=== PATIENT | male | born 1980 ===

== ENCOUNTER 2016-11-18 20:13 | Inpatient (IN) | payer BC, OTHER ==
[~2016-11-18] VITALS: Ht 167.6 cm; Wt 68.0 kg
--- NOTE | 2016-11-18 21:00 | NUR ---
PRE-ADMISSION Pt's pre-admission assessment performed in the intake office of [facility]. Pt is A&O x4 and ambulatory with a steady gait. Pt does not appear intoxicated and answers all questions appropriately. He verbalizes that he has been drinking ETOH (Vodka). Pt denies food or drug allergies. Denies seizure history. Vital signs are B/P 123/90, HR 96, RR 16, O2 sat 97%, T 98, pain 0/10. Pt is able to provide urine drug screen during the intake process. Admission to be continued on the [facility].
[2016-11-18 21:08] LABS: *AMPHETAMINE, URINE NEGATIVE (NEGATIVE); *BARBITURATE, URINE NEGATIVE (NEGATIVE); *CANNABINOID, URINE NEGATIVE (NEGATIVE); *COCCAINE, URINE NEGATIVE (NEGATIVE); *OPIATE, URINE NEGATIVE (NEGATIVE); *PHENCYCLIDINE SCREEN,URINE NEGATIVE (NEGATIVE)
[2016-11-18 21:15] VITALS: BP 123/90
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
[2016-11-18] MEDS ORDERED: CLONIDINE HCL 0.1 MG TABLET PO PRN (22:30)
[2016-11-18] MEDS ORDERED: LORAZEPAM 1 MG TABLET PO PRN ×2 (22:30)
[2016-11-18] MEDS ORDERED: LOPERAMIDE HCL 2 MG CAPSULE PO PRN ×2 (22:30)
[2016-11-18] MEDS ORDERED: diphenhydrAMINE 50 MG CAPSULE PO PRN (22:30)
[2016-11-18] MEDS ORDERED: ONDANSETRON ODT 4 MG TAB.RAPDIS SL PRN (22:30)
[2016-11-18] MEDS ORDERED: THIAMINE HCL 200 MG/2 ML VIAL IM ONE (22:30)
[2016-11-18] MEDS ORDERED: LORAZEPAM 2 MG/1 ML VIAL IM PRN (22:30)
[2016-11-18] MEDS ORDERED: MIRALAX 17 GM POWD.PACK PO PRN (22:30)
[2016-11-18] MEDS ORDERED: ACETAMINOPHEN 325 MG TABLET PO PRN (22:30)
[2016-11-18] MEDS ORDERED: MAG HYDROX/AL HYDROX/SIMETH 30 ML LIQUID UDC PO PRN (22:30)
[2016-11-18] MEDS ORDERED: DICYCLOMINE HCL 20 MG TABLET PO PRN (22:30)
[2016-11-18] MEDS ORDERED: IBUPROFEN 400 MG TABLET PO PRN (22:30)
[2016-11-18] MEDS ORDERED: MAGNESIUM HYDROXIDE 30 ML LIQUID UDC PO PRN (22:30)
[2016-11-18] MEDS ORDERED: ONDANSETRON 4 MG/2 ML VIAL IM PRN (22:30)
[2016-11-18] MEDS: HYDROXYZINE PAMOATE 25 MG CAPSULE PO PRN (22:53)
--- NOTE | 2016-11-18 22:53 | NUR ---
PRN Administration Pt reported feeling anxious - non-pharmacological methods ineffective. Vistaril 25mg PRN administered. Vitamin B1 injection also administered as ordered. Safety measures in place, Will continue to monitor.
[2016-11-18] MEDS ORDERED: HYDROXYZINE PAMOATE 25 MG CAPSULE ONE (23:00)
[2016-11-18 23:17] LABS: BASOPHILS # (AUTO) 0.1 K/uL (0.0-8.0); BASOPHILS % (AUTO) 1.2 % (0.0-2.0); EOSINOPHILS # (AUTO) 0.4 K/uL (0.0-0.7); EOSINOPHILS % (AUTO) 3.7 % (0.0-7.0); HEMATOCRIT 47.9 % (40-50); HEMOGLOBIN 16.5 G/DL (14.0-18.0); LYMPHOCYTES # (AUTO) 3.4 K/UL (0.8-4.8); LYMPHOCYTES % (AUTO) 34.4 % (20.5-51.5); MEAN CORPUSCULAR HGB CONC 34 g/dL (32.0-37.0); MEAN CORPUSCULAR VOLUME 96.1 FL (82.0-92.0); MONOCYTES # (AUTO) 0.6 K/UL (0.1-1.30); MONOCYTES % (AUTO) 6.1 % (0.0-11.0); NEUTROPHILS # (AUTO) 5.3 K/UL (1.8-8.9); NEUTROPHILS % (AUTO) 54.6 % (38.5-71.5); PLATELET COUNT (AUTO) 203 K/UL (150-450); RED BLOOD CELL COUNT(AUTO) 4.98 MIL/UL (4.7-6.1); RED CELL DISTRIBUTION WIDTH 12.6 % (11.5-14.5); WHITE BLOOD COUNT (AUTO) 9.8 K/UL (4.0-11.2)
--- NOTE | 2016-11-18 23:53 | NUR ---
PRN Reassessment Upon reassessment, pt is noted to be sleeping, eyes closed, respirations even/unlabored, no s/s of acute distress noted. Safety measures in place. Will continue to monitor.
[2016-11-18 23:54] LABS: ALBUMIN 4.4 g/dL (3.4-5.0); BILIRUBIN,TOTAL 0.7 mg/dL (0.2-1.0); CALCIUM 8.9 mg/dL (8.5-10.1); CREATININE 0.8 mg/dL (0.6-1.3); MAGNESIUM 2.2 mg/dL (1.8-2.4); TOTAL PROTEIN, SERUM 8.8 g/dL (6.4-8.2)
[2016-11-19] VITALS (7 sets, daily range): BP systolic 108–136; BP diastolic 69–95
--- NOTE | 2016-11-19 | NUR ---
Vital Signs BP 121/87, pulse 96, SpO2 96%, respirations 16, temp 97.9, no pain 0/10. CIWA deferred d/t pt sleeping, to assess while pt is awake as ordered. Safety measures in place. Will continue to monitor.
[2016-11-19 00:02] LABS: THYROID STIMULATING HORMONE 2.92 mIU/mL (0.358-3.740)
[2016-11-19 00:19] LABS: HIV-1 p24 ANTIGEN NON REACTIVE (NONREACTIVE); HIV-1/2 ANTIBODY NON REACTIVE (NONREACTIVE)
[2016-11-19] MEDS ORDERED: ALPR0.255 PO (03:10)
[2016-11-19] MEDS ORDERED: TRAZ-144 PO (03:10)
--- NOTE | 2016-11-19 04:00 | NUR ---
Vital Signs BP 108/69, pulse 84, SpO2 98%, respirations 14, temp 98, no pain 0/10. CIWA deferred d/t pt sleeping, to assess while pt is awake as ordered. Safety measures in place. Will continue to monitor.
--- NOTE | 2016-11-19 07:00 | NUR ---
End of Shift Pt is a 36 year old male admitted for ETOH dependence. Pt reported consuming 2 bottles/daily for 3-4 days - pt is a binge drinker, last intake of 1 bottle on 11/18/2016. Pt has been drinking at this rate for the past 7-8 years. This is pts first time in detox treatment. PMH: Anxiety and Depression. NKA, fall/seizure precautions - no history of seizures, regular diet and full code. During shift, CIWA 5. Vistaril 25mg PRN administered for anxiety, effective. Vitamin B1 injection administered as ordered. Pt slept for 6 hours, intake of 250 ml Po and voids x1. Pt is scheduled for discharge today. Safety measures in place, call light within reach, side rails up x2, bed locked and in low position. Endorsed to day shift nurse.
--- NOTE | 2016-11-19 07:15 | NUR ---
start of shift note: pt is a new admit [facility] for ETOH/benzo withdrawal/dependence. pt at this time is in stable condition no s/s of pain or discomfort. will orient pt to unit and assist pt in managing withdrawal symptoms.pts last ciwa 5. will monitor pt for any changes.
[2016-11-19] MEDS ORDERED: TUBERCULIN,PURIF.PROT.DERIV. 5 TU/0.1 ML TEST ID ONE (09:00)
[2016-11-19] MEDS ORDERED: LORAZEPAM 1 MG TABLET PO SCH (09:00)
[2016-11-19] MEDS: THIAMINE HCL 100 MG TABLET PO SCH (09:10)
[2016-11-19] MEDS: MULTIVITAMINS,THERAPEUTIC TABLET PO SCH (09:10)
[2016-11-19] MEDS: FOLIC ACID 1 MG TABLET PO SCH (09:10)
[2016-11-19] MEDS: GABAPENTIN 300 MG CAPSULE PO SCH ×2 (15:29→20:04)
--- NOTE | 2016-11-19 17:33 | NUR ---
PRN ADMINISTRATION: PT VERBALIZED ABDOMINAL PAIN 01/14 BENTYL WAS ADMINISTERED. WILL REASSESS PT
--- NOTE | 2016-11-19 18:15 | NUR ---
PRN RE-ASSESSMENT: PT VERBALIZES THAT HIS STOMACH FEELS BETTER STOMACH CRAMPS, HAVE LESSEN STOMACH PT'S PAIN LEVEL 3/10
--- NOTE | 2016-11-19 19:30 | NUR ---
END OF SHIFT NOTE: PT IS ADMITTED [facility] FOR [facility]H WITHDRAWAL/DEPENDENCE. PT IS ON PRN'S. PT RECEIVED X1 DOSE OF 2MG ATIVAN IN AM. PTS LAST CIWA IS 5 D/T STOMACH DISCOMFORT. PT RECEIVED CHEST X-RAY FOR TB MEDICAL CLEARANCE. WILL ENDORSE PT TO REFRIGERATING MACHINE OPERATOR NURSE
--- NOTE | 2016-11-19 20:00 | NUR ---
Start of Shift Pt is a 36 year old male admitted for ETOH dependence. Pt reported consuming 2 bottles/daily for 3-4 days - pt is a binge drinker, last intake of 1 bottle on 11/18/2016. Pt has been drinking at this rate for the past 7-8 years. PMH: Anxiety and Depression. NKA, fall/seizure precautions - no history of seizures, regular diet and full code. Upon assessment, pt presents with anxiety, tremors visible, mild chills reports, skin noted to be flushed/clammy, reparations even/unlabored, denies SOB/chest pain, denies n/v/d, bowel sounds active x4, abdomen soft. Safety measures in place, call light within reach, side rails up x2, bed locked and in low position. Will continue to monitor.
[2016-11-19] MEDS: TRAZODONE 50 MG TABLET PO SCH (20:04)
[2016-11-19] MEDS: HYDROXYZINE PAMOATE 25 MG CAPSULE PO PRN (20:17)
--- NOTE | 2016-11-19 20:17 | NUR ---
PRN Administration Pt reported feeling anxious - non pharmacological methods ineffective. Vistaril 25mg PRN Administered. Safety measures in place. Will continue to monitor.
--- NOTE | 2016-11-19 21:17 | NUR ---
PRN Reassessment Upon reassessment, pt is in bed, eyes closed, resting. Respiration unlabored, no acute s/s of distress noted. Safety measures in place, will continue to monitor.
[2016-11-20] VITALS: BP 118/84
--- NOTE | 2016-11-20 | NUR ---
Vital Signs BP 118/84, pulse 77, SpO2 96%, respirations 18, temp 97.7, no pain 0/10 CIWA deferred d/t pt sleeping - to assess while pt is awake as ordered. Safety measures in place. Will continue to monitor.
[2016-11-20 04:00] VITALS: BP 118/73
--- NOTE | 2016-11-20 04:00 | NUR ---
Vital Signs BP 118/73, pulse 78, respirations 18, SpO2 96%, temp 98.3, no pain 0/10 CIWA deferred d/t pt sleeping - to assess while pt is awake as ordered. Safety measures in place. Will continue to monitor.
--- NOTE | 2016-11-20 07:00 | NUR ---
End of Shift Pt is a 36 year old male admitted for ETOH dependence. Pt reported consuming 2 bottles/daily for 3-4 days - pt is a binge drinker, last intake of 1 bottle on 11/18/2016. Pt has been drinking at this rate for the past 7-8 years. PMH: Anxiety and Depression. NKA, fall/seizure precautions - no history of seizures, regular diet and full code. During shift, pt presented with anxiety, tremors visible, mild chills reports, skin noted to be flushed/clammy - scheduled taper medications administered, CIWA 5. Vistaril 25mg PRN administered for anxiety. Pt slept for 8 hours, intake of 2000 ml PO and voids x2. Safety measures in place, call light within reach, side rails up x2, bed locked and in low position. Endorsed to day shift nurse.
--- NOTE | 2016-11-20 07:20 | NUR ---
Start of Shift Report from the night nurse: pt is a 36 y/o male her for Etoh r/t Vodka 2 bottles daily and is a binger for 3-4 days with moderate tremors visible; No taper ordered and only gabapentin ordered for tremors control. Pt is a full code, regulr diet, NKA, fall and seizure precautions ordered. HHx: Anxiety, depression first time detox. PRN Vistaril given last night. V/S stable. Skin is intact. No new orders or labs endorsed to me. Last CIWA 5. Pt is asleep in room. Will cont. to monitor the pt.
[2016-11-20 08:00] VITALS: BP 115/78
[2016-11-20] MEDS ORDERED: LORAZEPAM 1 MG TABLET PO SCH (09:00)
[2016-11-20] MEDS: FOLIC ACID 1 MG TABLET PO SCH (09:04)
[2016-11-20] MEDS: GABAPENTIN 300 MG CAPSULE PO SCH ×3 (09:04→20:32)
[2016-11-20] MEDS: MULTIVITAMINS,THERAPEUTIC TABLET PO SCH (09:04)
[2016-11-20] MEDS: THIAMINE HCL 100 MG TABLET PO SCH (09:04)
--- NOTE | 2016-11-20 09:09 | NUR ---
Manual Medication Administration and PRN Medication Scanner is broken so reassessed pt ID, Name, and medications given as scheduled with PRN Motrin 400mg PO for 710 lower back pain. IT tech called for malfxn computer repairs and will reassess in 1H.
--- NOTE | 2016-11-20 10:10 | NUR ---
Reassessment Pt is getting dressed and ready for group and activities and denies ARNOLD 0/10 pain; Motrin is effective. Will cont. to monitor the pt.
[2016-11-20 11:06] LABS: HCV AB <0.1 s/co ratio (0.0-0.9); HEPATITIS B CORE AB, IgM Negative (Negative); HEPATITIS B SURFACE AG Negative (Negative)
[2016-11-20 12:00] VITALS: BP 135/88
[2016-11-20] MEDS: HYDROXYZINE PAMOATE 25 MG CAPSULE PO PRN (15:27)
--- NOTE | 2016-11-20 15:30 | NUR ---
PRN Medication Administration Pt is in room with anxiety and slightly irritable with tremors obvious in BUE's and c/o hot flashes with mild sweating, V/S stable with HR 74-98, CIWA 9; PRN Vistaril 25mg given as ordered. Will reassess in 1H.
[2016-11-20 16:00] VITALS: BP 134/96
--- NOTE | 2016-11-20 16:30 | NUR ---
Reassessment Pt is in room watching television quietly and no anxiety present, pt states that the hot flashes stopped and that he feels calmer than earlier; PRN Vistaril 25mg is effective. Will cont. to monitor the pt.
[2016-11-20 16:49] LABS: *AMPHETAMINE, URINE NEGATIVE (NEGATIVE); *BARBITURATE, URINE NEGATIVE (NEGATIVE); *CANNABINOID, URINE NEGATIVE (NEGATIVE); *COCCAINE, URINE NEGATIVE (NEGATIVE); *OPIATE, URINE NEGATIVE (NEGATIVE); *PHENCYCLIDINE SCREEN,URINE NEGATIVE (NEGATIVE)
--- NOTE | 2016-11-20 19:07 | NUR ---
End of Shift Report to the night nurse with update: pt is a 36 y/o male her for Etoh r/t Vodka 2 bottles daily and is a binger for 3-4 days with moderate tremors visible; No taper ordered and only gabapentin ordered for tremors control. Pt is a full code, regular diet, NKA, fall and seizure precautions ordered. HHx: Anxiety, depression first time detox. PRN Motrin 400mg & Vistaril given at 1530p. V/S stable. Skin is intact. New order for pt to be d/c'd tomorrow and endorsed to night nurse to f/u with results, no PRN Ativan given during my shift. Pt attended some group therapy but no activities during my shift. No hallucinations, delusions or suicidal ideations noted during my shift. Last CIWA 9.
[2016-11-20 20:00] VITALS: BP 137/97
--- NOTE | 2016-11-20 20:00 | NUR ---
Start of Pt is a 36 year old male admitted for ETOH dependence. Pt reported consuming 2 bottles/daily for 3-4 days - pt is a binge drinker, last intake of 1 bottle on 11/18/2016. Pt has been drinking at this rate for the past 7-8 years. PMH: Anxiety and Depression. NKA, fall/seizure precautions - no history of seizures, regular diet and full code. Upon assessment, pt reports feeling anxious d/t discharged scheduled for tomorrow, tremors visible,, skin noted to be flushed, reparations even/unlabored, denies SOB/chest pain, denies n/v/d, bowel sounds active x4, abdomen soft. Safety measures in place, call light within reach, side rails up x2, bed locked and in low position. Will continue to monitor. Addendum: 11/20/16 at 2122 by MESFIN JUAREZ RN START OF SHIFT
[2016-11-20] MEDS: TRAZODONE 50 MG TABLET PO SCH (20:32)
--- NOTE | 2016-11-20 22:02 | NUR ---
PRN Administration Pt reported feeling anxious, tremors visible, face flushed, reports chills. BP 145/98, pulse 86, respirations 18, SpO2 97% Clonidine 0.1mg PRN administered. Safety measures in place. Will continue to monitor.
--- NOTE | 2016-11-20 23:02 | NUR ---
PRN Reassessment Upon assessment, pt is sleeping, respirations even/unlabored. no s/s of acute distress. Safety measures in place. Will continue to monitor.
[2016-11-20] MEDS ORDERED: HYDR-3895 PO (23:27)
[2016-11-20] MEDS ORDERED: Gabapentin PO (23:27)
[2016-11-20] MEDS ORDERED: DICY20TA28 PO (23:27)
[2016-11-20] MEDS ORDERED: CLON0.1T14 PO (23:27)
[2016-11-21] VITALS: BP 106/71
--- NOTE | 2016-11-21 | NUR ---
Vital Signs BP 106/71, pulse 83, respirations 18, SpO2 96%, temp 97.8, no pain 0/10 CIWA deferred d/t pt sleeping, to assess while pt is awake as ordered. Safety measures in place. Will continue to monitor.
[2016-11-21 04:00] VITALS: BP 107/62
--- NOTE | 2016-11-21 04:00 | NUR ---
Vital Signs BP 107/63, pulse 87, respirations 16, SpO2 96%, temp 98, no pain 0/10 CIWA deferred d/t pt sleeping - to assess while pt is awake as ordered. Safety measures in place. Will continue to monitor.
--- NOTE | 2016-11-21 07:00 | NUR ---
End of Shift Pt is a 36 year old male admitted for ETOH dependence. Pt reported consuming 2 bottles/daily for 3-4 days - pt is a binge drinker, last intake of 1 bottle on 11/18/2016. Pt has been drinking at this rate for the past 7-8 years. PMH: Anxiety and Depression. NKA, fall/seizure precautions - no history of seizures, regular diet and full code. During shift, pt reported feeling anxious d/t discharged scheduled for today, presented with visible tremors, skin noted to be flushed - scheduled medications administered. Clonidine 0.1mg PRN administered. Pt is scheduled for discharge today, no s/s of acute withdrawal noted. Pt slept for 7 hours, intake of 2250 ml PO and voids x2. Safety measures in place, call light within reach, side rails up x2, bed locked and in low position. Endorsed to day shift nurse.
--- NOTE | 2016-11-21 07:50 | NUR ---
START OF SHIFT Received report from hourly shift nurse. 36 year old male patient admitted on 11/18/16 for ETOH dependence. Pt has completed ordered taper and is medically cleared for d/c. Reports hx of anxiety and depression. A/O x4. V/S remain WNL throughout shift.PRN Clonidine was administered and effective. Most recent CIWA is 5. Pt is resting in bed at this time. Does not present with s/s of withdrawal. Ambulates with a steady gait. Safety precautions are in place. Will continue to monitor.
[2016-11-21 08:21] VITALS: BP 107/69
[2016-11-21] MEDS: GABAPENTIN 300 MG CAPSULE PO SCH (08:59)
[2016-11-21] MEDS: FOLIC ACID 1 MG TABLET PO SCH (08:59)
[2016-11-21] MEDS: MULTIVITAMINS,THERAPEUTIC TABLET PO SCH (08:59)
[2016-11-21] MEDS: THIAMINE HCL 100 MG TABLET PO SCH (08:59)
[2016-11-21] MEDS ORDERED: LORAZEPAM 1 MG TABLET PO SCH (09:00)
--- NOTE | 2016-11-21 09:18 | NUR ---
D/C NOTE Pt is A/O x4. V/S remain WNL. Pt denies SI/HI or hallucinations. Pt shows no s/s of acute withdrawal at this time, and is stable. has medically cleared pt for d/c . Education on Hepatitis C, smoking cessation and medication side effects provided. Pt verbalizes understanding. All pt belongings are in belonging bag, including prescriptions, pt did not have any home medications. Refuses PNU vaccination. Pt is being accompanied by LITHOGRAPH OPERATOR at this time to be transported to rehab. All needs met.
[2016-11-22] MEDS ORDERED: LORAZEPAM 1 MG TABLET PO SCH (09:00)
[2016-11-23] MEDS ORDERED: LORAZEPAM 1 MG TABLET PO SCH (09:00)
== END 2016-11-21 09:15 | DRG 895 ==
LOC: SRC 20:16
PROVIDERS: ADMIT Internal Medicine; ATTEND Internal Medicine
PROC: HZ2ZZZZ Detoxification Services for Substance Abuse Treatment (ICD-10-PCS; principal; 2016-11-18)
PROC: HZ41ZZZ Group Counseling for Substance Abuse Treatment, Behavioral (ICD-10-PCS; principal; 2016-11-18)
DX: F10.230 Alcohol dependence with withdrawal, uncomplicated (principal); E87.0 Hyperosmolality and hypernatremia; F10.220 Alcohol dependence with intoxication, uncomplicated; K70.10 Alcoholic hepatitis without ascites; Y90.9 Presence of alcohol in blood, level not specified; F41.9 Anxiety disorder, unspecified; G47.00 Insomnia, unspecified; F32.9 Major depressive disorder, single episode, unspecified
CPT/HCPCS: 36415; 70030-TC; 71010; 80307; 83690; 83735; 84443; 85025; 86592; 86705; 86803; 87340; 87806; G6040-TC; J3411